=== PATIENT | female | born 1960 | race Caucasian/White ===

== ENCOUNTER 2018-01-01 13:53 | Emergency (ER) | payer OTHER ==
[~2018-01-01] VITALS: Ht 149.9 cm; Wt 68.2 kg
[2018-01-01 15:35] VITALS: BP 140/88
== END 2018-01-01 15:36 | disposition home or self-care (01) ==
LOC: ER 13:53
DX: J45.909 Unspecified asthma, uncomplicated (principal)
CPT/HCPCS: 99281